=== PATIENT | female | born 1945 | race Caucasian/White ===

== ENCOUNTER 2016-09-13 06:26 | Outpatient (CLI) ==
[2013-09-03 10:40] VITALS: BMI 38.4
--- NOTE | 2016-09-13 09:25 | STRESSMOD ---
Ordering Physician: ELOISE LUTZ Date of Test: 09/13/16 Medical History: CHEST PAIN Current Medications: HYZAAR, OMEPRAZOL, FLONASE Physical Findings: S1, S2, NO S3 Resting EKG: SINUS RHYTHM/NO ACUTE CHANGES Target Heart Rate: 126/149 STAGE MPH/GRADE HEART RATE BPM BLOOD PRESSURE mmhg RHYTHM S-T SEGMENT UP DOWN SYMPTOMS,COMMENTS At Rest 70 160/90 SR X NONE 1 1.7/0% 100 178/90 SR X NONE 2 1.7/5% 184/92 3 1.7/10% 4 2.5/12% 5 3.4/14% 6 4.2/16% 7 5.18% Immediately after 129 SR X FATIGUE Total Time: 7:01 Maximum Heart Rate Reached: 129 Reason for Termination : FATIGUE 4 MIN POST EXERCISE: HR 81 BPM, BP 180/88 MMHG ____ INTERPRETATION: 95%OXYGEN SATURATION WITH EXERCISE METS 4.6 1. NO EVIDENCE OF ISCHEMIC BY ST-T WAVE 2. NO CHEST PAIN OR CHEST DISCOMFORT 3. FEW ISOLATED PVC'S 4. BLOOD PRESSURE RESPONSE: HYPERTENSION AT REST AND WITH EXERCISE NORMAL LEFT VENTRICULAR CONTRACTILITY--RESTING AND POST EXERCISE MTDD
--- NOTE | 2016-09-13 09:28 | ECHOSTRESS ---
Date of Exam: 09/13/16 [facility] Reason for Echo: CHEST PAIN, STRESS TEST--NO ISCHEMIA M-Mode Normal Adult Results LV Dimensions Normal Adult Results AoV Opening excursions >1.6 LVEDD-base- 3.5-5.8 Ao root dimensions 2.0-3.7 LVESD-base- 3.1-4.6 L. Atrium dimensions 1.9-3.8 Post. Wall thickness 0.8-1.1 IV septum (thickness) 0.7-1.2 Post. Wall excursion 0.72-1.3 Septal motion Systolic motion R. Ventricular cavity 1.5-2.0 LVEF 60% Paradoxical septal wall motion 2-D: NORMAL LEFT VENTRICULAR CONTRACTILITY--RESTING AND POST EXERCISE M-MODE: MV: AV: TV: PV: CHAMBER SIZE: WALL MOTION: NORMAL LEFT VENTRICULAR CONTRACTILITY--RESTING AND POST EXERCISE PERICARDIUM: INTERPRETATION: 1. NORMAL LEFT VENTRICULAR CONTRACTILITY--RESTING AND POST EXERCISE MTDD
== END 2016-09-13 06:27 | disposition home or self-care (01) ==
LOC: CAR 06:26
PROVIDERS: ATTEND General Practice
DX: M79.603 Pain in arm, unspecified (principal); I10 Essential (primary) hypertension; R07.89 Other chest pain; Z68.36 Body mass index [BMI] 36.0-36.9, adult

== ENCOUNTER 2016-10-18 16:33 | Outpatient (CLI) ==
[2013-09-03 10:40] VITALS: BMI 38.4
--- NOTE | 2016-10-18 16:56 | DI ---
EXAM: Right humerus two-view HISTORY: Pain in right arm COMPARISON: Radiograph shoulder 08/20/2009 FINDINGS: No fracture dislocation. Mild osteoarthritis acromioclavicular glenohumeral joints, poor ly evaluated. Alignment is normal. No focal soft tissue abnormality. IMPERSSION: No fracture or dislocation.
== END 2016-10-18 16:34 | disposition home or self-care (01) ==
LOC: RAD 16:33
PROVIDERS: ATTEND General Practice
DX: M79.601 Pain in right arm (principal)

== ENCOUNTER 2016-10-19 13:11 | Outpatient (CLI) ==
[2013-09-03 10:40] VITALS: BMI 38.4
--- NOTE | 2016-10-19 17:42 | MRI ---
EXAM: MRI of the right upper extremity without contrast COMPARISON: Right humerus radiographs 10/18/2016. HISTORY: Pain in the mid to upper humerus. Previous fracture 4 years ago without a recent injury. No provided history of surgery involving the right humerus. TECHNIQUE: Multiplanar noncontrast MR images of the right humerus were acquired using a 1.5 Alycia m agnet with field of view extending from the mid to distal shaft through the humeral neck with incomp lete assessment of the humeral head. The distal humerus and elbow were incompletely assessed. Sever al sequences are significantly limited by patient motion artifact and multiple sequences were repeat ed. There is chronic-appearing deformity of the proximal shaft/neck of the humerus consistent with an ol d healed fracture with mild displacement with most pronounced cortical step off anteromedially at th e neck. No evidence of an acute fracture or osteomyelitis. Confluent regions of inversion recovery hyperintense/T1 hypointense signal throughout the humeral shaft suggesting red marrow reconversion/ hyperplasia. No cortical destruction. No evidence of an acute muscle injury. No drainable intramuscular or deep fascial fluid collection. No soft tissue mass identified. Mild muscle atrophy with most pronounced fatty infiltration of th e deltoid muscle. Partially imaged degenerative changes of the glenohumeral joint. Sub centimeter axillary lymph nodes which are not pathologic by size criteria. The rotator cuff and acromioclavicu lar joint are excluded from the field of view. The visualized portions of the long head biceps withi n the bicipital groove are unremarkable. The proximal bicipital groove segment and intra-articular segment of the tendon are incompletely assessed. The distal biceps is also incompletely assessed. IMPRESSION: 1. Chronic-appearing deformity of the proximal right humerus related to an old healed fracture as d escribed. No acute osseous abnormality. Partially imaged degenerative changes of the glenohumeral j oint. 2. Nonspecific red marrow reconversion/hyperplasia. No focal marrow lesion. 3. Sub centimeter right axillary lymph nodes which are not nonspecific. 4. Mild muscle atrophy.
== END 2016-10-19 13:12 | disposition home or self-care (01) ==
LOC: RAD 13:11
PROVIDERS: ATTEND General Practice
DX: M79.601 Pain in right arm (principal)

== ENCOUNTER 2016-12-05 12:40 | Outpatient (CLI) ==
[2013-09-03 10:40] VITALS: BMI 38.4
[2016-12-05 13:10] LABS: BASOPHILS % (AUTO) 0.2 % (0.0-3.0); EOSINOPHILS # (AUTO) 0.2 K/ul (0.0-0.7); EOSINOPHILS % (AUTO) 1.8 % (0.0-7.0); HEMATOCRIT 34.2 % (37.0-47.0); HEMOGLOBIN 10.8 g/dl (12.0-16.0); IMMATURE GRANULOCYTE % (AUTO) 0.4 % (0.0-5.0); LYMPHOCYTES # (AUTO) 1.9 K/uL (0.60-3.4); LYMPHOCYTES % (AUTO) 22.1 (10.0-50.0); MEAN CORPUSCULAR HEMOGLOBIN 28.4 pg (27.0-31.0); MEAN CORPUSCULAR HGB CONC 31.6 (31.8-35.4); MONOCYTES # (AUTO) 0.6 K/uL (0.4-2.0); MONOCYTES % (AUTO) 7.5 (0-10); NEUTROPHILS # (AUTO) 5.7 K/ul (2.0-6.9); PLATELET COUNT 377 10^3/uL (140-440); WHITE BLOOD COUNT 8.36 K/ul (4.6-10.2)
[2016-12-05 13:12] LABS: BILIRUBIN,URINE Negative (NEGATIVE); KETONES,URINE Negative (NEGATIVE); LEUKOCYTE ESTERASE ,URINE Negative (NEGATIVE); NITRITE,URINE Negative (NEGATIVE); PROTEIN,URINE Negative (NEGATIVE); URINE, BLOOD Negative (NEGATIVE)
[2016-12-05 13:13] LABS: ADD URINE MICROSCOPIC NO
[2016-12-05 13:53] LABS: ALBUMIN 3.6 g/dL (3.4-5.0); ALBUMIN/GLOBULIN RATIO 1.06; ANION GAP 12.9; BILIRUBIN,TOTAL 0.57 mg/dL (0.00-1.20); BUN/CREATININE RATIO 17.39; CALCIUM 9.4 mg/dL (8.2-10.2); CHOL/HDL RATIO 5.1 (4.5-5.5); CREATININE 0.69 mg/dL (0.60-1.30); POTASSIUM 3.9 mmol/L (3.5-5.10)
== END 2016-12-05 12:41 | disposition home or self-care (01) ==
LOC: LAB 12:40
PROVIDERS: ATTEND General Practice
DX: I10 Essential (primary) hypertension (principal); K21.9 Gastro-esophageal reflux disease without esophagitis; G44.209 Tension-type headache, unspecified, not intractable; K76.0 Fatty (change of) liver, not elsewhere classified; K76.9 Liver disease, unspecified; R63.5 Abnormal weight gain; R30.0 Dysuria; Z68.36 Body mass index [BMI] 36.0-36.9, adult
CPT/HCPCS: 36415; 80053; 80061; 81001; 84443; 85025

== ENCOUNTER 2017-02-07 14:17 | Outpatient (CLI) ==
[2013-09-03 10:40] VITALS: BMI 38.4
== END 2017-02-07 14:18 | disposition home or self-care (01) ==
LOC: LAB 14:17
PROVIDERS: ATTEND General Practice
DX: J02.9 Acute pharyngitis, unspecified (principal)
CPT/HCPCS: 87070

== ENCOUNTER 2017-04-12 09:15 | Outpatient (CLI) ==
[2013-09-03 10:40] VITALS: BMI 38.4
--- NOTE | 2017-04-12 09:37 | DI ---
Exam: Two x-rays of the chest. Comparison: 07/13/2016. Reason for exam: Wheezing. FINDINGS: No pneumothorax, pleural effusion, or focal consolidation. The cardiac silhouette is not enlarged. Old granulomatous disease is seen in the lung parenchyma. The imaged osseous structures appear gross ly unremarkable without acute fracture. Impression: No acute cardiopulmonary process.
[2017-04-12 09:49] LABS: BASOPHILS % (AUTO) 0.3 % (0.0-3.0); EOSINOPHILS # (AUTO) 0.2 K/ul (0.0-0.7); EOSINOPHILS % (AUTO) 2.6 % (0.0-7.0); HEMATOCRIT 34.6 % (37.0-47.0); HEMOGLOBIN 11.5 g/dl (12.0-16.0); IMMATURE GRANULOCYTE % (AUTO) 0.3 % (0.0-5.0); LYMPHOCYTES # (AUTO) 1.7 K/uL (0.60-3.4); LYMPHOCYTES % (AUTO) 18.6 (10.0-50.0); MEAN CORPUSCULAR HEMOGLOBIN 29.6 pg (27.0-31.0); MEAN CORPUSCULAR HGB CONC 33.2 (31.8-35.4); MEAN CORPUSCULAR VOLUME 88.9 fl (81.0-99.0); MONOCYTES # (AUTO) 0.7 K/uL (0.4-2.0); MONOCYTES % (AUTO) 8.4 (0-10); NEUTROPHILS # (AUTO) 6.2 K/ul (2.0-6.9); NEUTROPHILS % (AUTO) 69.8; PLATELET COUNT 378 10^3/uL (140-440); RED BLOOD COUNT 3.89 10^6/ul (4.20-5.40); WHITE BLOOD COUNT 8.85 K/ul (4.6-10.2)
== END 2017-04-12 09:16 | disposition home or self-care (01) ==
LOC: RAD 09:15
PROVIDERS: ATTEND General Practice
DX: R06.2 Wheezing (principal); R05 Cough
CPT/HCPCS: 36415; 85025; 87651; 87880

== ENCOUNTER 2017-06-16 08:27 | Outpatient (CLI) ==
[2013-09-03 10:40] VITALS: BMI 38.4
--- NOTE | 2017-06-16 09:58 | MAMMO ---
EXAM: Bilateral digital screening mammogram (2-D and 3-D) History: Screening Comparison: Bilateral mammogram 07/05/2016 Findings: MLO and CC views of bilateral breasts demonstrate predominately fat replaced breast parenc hyma. CAD was reviewed by the radiologist. Tomosynthesis was performed. There are no dominant mass es, no suspicious microcalcifications and no architectural distortions Impression: Stable negative mammogram. Recommend followup routine screening mammography in 1 year. BIRADS 1
== END 2017-06-16 08:28 | disposition home or self-care (01) ==
LOC: RAD 08:27
PROVIDERS: ATTEND General Practice
DX: Z12.31 Encounter for screening mammogram for malignant neoplasm of breast (principal)
CPT/HCPCS: 77067

== ENCOUNTER 2017-09-20 07:23 | Outpatient (CLI) ==
[2013-09-03 10:40] VITALS: BMI 38.4
== END 2017-09-20 07:24 | disposition home or self-care (01) ==
LOC: LAB 07:23
PROVIDERS: ATTEND General Practice
DX: I10 Essential (primary) hypertension (principal); K21.9 Gastro-esophageal reflux disease without esophagitis; K76.0 Fatty (change of) liver, not elsewhere classified; Z79.899 Other long term (current) drug therapy
CPT/HCPCS: 36415; 80053; 80061; 81001; 85025

== ENCOUNTER 2017-11-30 15:12 | Outpatient (CLI) ==
[2013-09-03 10:40] VITALS: BMI 38.4
--- NOTE | 2017-11-30 16:34 | DI ---
EXAM: Chest two view, frontal and lateral views. HISTORY: Respiratory symptoms. COMPARISON: 04/12/2017. FINDINGS: The heart size is normal. There is no pulmonary vascular congestion. The lungs are clear save for calcified granulomatous changes. No pleural effusion or pneumothorax is seen. No acute os seous abnormality identified. Postsurgical change of the lumbar spine are partially imaged. Clips n oted in the right upper abdomen. Since the prior study, there has been no significant interval change . IMPRESSION: No acute cardiopulmonary process.
== END 2017-11-30 15:13 | disposition home or self-care (01) ==
LOC: LAB 15:12
PROVIDERS: ATTEND General Practice
DX: M54.9 Dorsalgia, unspecified (principal); R06.02 Shortness of breath; R09.89 Other specified symptoms and signs involving the circulatory and respiratory systems
CPT/HCPCS: 36415; 81001; 85379

== ENCOUNTER 2017-12-12 07:24 | Outpatient (CLI) ==
[2013-09-03 10:40] VITALS: BMI 38.4
--- NOTE | 2017-12-12 08:07 | US ---
Exam: Dimas-scale and color ultrasonographic evaluation of the kidneys and urinary bladder. Reason for exam: Hematuria with back pain. Comparison: CT abdomen pelvis performed 12/23/2011. FINDINGS: The right kidney measures approximately 10.8 x 4.5 x 5.5 cm with a normal appearing echotexture, no h ydronephrosis, and no nephrolithiasis. The left kidney measures approximately 12.6 x 5.6 x 4.5 cm with a normal appearing echotexture, no hy dronephrosis, and no nephrolithiasis. There is mild prominence of the renal pyramids seen in the lef t kidney. Postvoid bladder volume was unable to be determined secondary to complete emptying. Impression: 1. No acute ultrasonographic findings are seen within the kidneys or urinary bladder. 2. Mild prominence of the renal pyramids in the left kidney. If clinical concern exists, further ev aluation may be performed. 3. Complete emptying of the urinary bladder.
== END 2017-12-12 07:25 | disposition home or self-care (01) ==
LOC: RAD 07:24
PROVIDERS: ATTEND General Practice
DX: M54.5 Low back pain (principal); R31.9 Hematuria, unspecified
CPT/HCPCS: 76770

== ENCOUNTER 2018-01-23 09:21 | Outpatient (CLI) ==
[2013-09-03 10:40] VITALS: BMI 38.4
== END 2018-01-23 09:22 | disposition home or self-care (01) ==
LOC: FCC-LAB 09:21
PROVIDERS: ATTEND General Practice
DX: I10 Essential (primary) hypertension (principal); K21.9 Gastro-esophageal reflux disease without esophagitis; F43.9 Reaction to severe stress, unspecified; M54.5 Low back pain; K76.0 Fatty (change of) liver, not elsewhere classified; Z79.899 Other long term (current) drug therapy
CPT/HCPCS: 36415; 80053; 80061; 81001; 85025

== ENCOUNTER 2018-03-14 16:24 | Outpatient (CLI) ==
[2013-09-03 10:40] VITALS: BMI 38.4
== END 2018-03-14 16:25 | disposition home or self-care (01) ==
LOC: FCC-LAB 16:24
PROVIDERS: ATTEND General Practice
DX: M25.50 Pain in unspecified joint (principal); M54.9 Dorsalgia, unspecified; K92.1 Melena; W57.XXXA Bitten or stung by nonvenomous insect and other nonvenomous arthropods, initial encounter
CPT/HCPCS: 36415; 81001; 82272; 85651; 86038; 86617

== ENCOUNTER 2018-03-27 10:30 | Outpatient (CLI) ==
[2013-09-03 10:40] VITALS: BMI 38.4
--- NOTE | 2018-03-27 13:06 | DI ---
EXAM: Left hand three-view HISTORY: Arthralgia of both hands COMPARISON: 09/03/2013 FINDINGS: Bones appear demineralized. No fracture or dislocation. Mild scattered osteoarthritic ch ana maria throughout the hand and wrist with severe osteoarthritis first CMC joint. No focal soft tissue abnormality. 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
--- NOTE | 2018-03-27 13:09 | DI ---
EXAM: Right ankle. Three-view HISTORY: Arthralgia right ankle COMPARISON: None FINDINGS: No fracture or dislocation. Mild to moderate osteoarthritis involving the ankle and mid foot. Ankle mortise symmetric. Small plantar and posterior calcaneal spurs. No focal soft tissue abn ormality. IMPERSSION: 1. Mild to moderate osteoarthritis. 2. Calcaneal spurs.
--- NOTE | 2018-03-27 13:14 | DI ---
EXAM: Three views of the right hand HISTORY: Right hand pain. COMPARISON: Left hand x-ray same day FINDINGS: . There is no cortical irregularity or displaced fracture of the right hand. There is mil d scattered joint space narrowing. There is moderate degenerative change and osteophyte formation of the first CMC joint. The soft tissues are unremarkable. IMPRESSION: Mild scattered degenerative disease throughout the right hand with moderate degenerative change of th e first CMC joint.
--- NOTE | 2018-03-27 14:01 | DI ---
EXAM: Three views of the left ankle HISTORY: Pain COMPARISON: 08/12/2008 FINDINGS: No fracture or dislocation is identified. The ankle mortise is symmetric. The talar dome contour is normal. There is minimal spurring of the inferior margin of the medial malleolus. There is a large distal Achilles insertion and moderate plantar fascial insertion calcaneal degenerative enthesophyte . The distal Achilles insertion spur has increased in size. IMPRESSION: No acute osseous abnormality. Calcaneal spurs.
== END 2018-03-27 10:31 | disposition home or self-care (01) ==
LOC: RAD 10:30
PROVIDERS: ATTEND General Practice
DX: M25.572 Pain in left ankle and joints of left foot (principal); M25.571 Pain in right ankle and joints of right foot; M25.532 Pain in left wrist; M25.541 Pain in joints of right hand; M25.542 Pain in joints of left hand

== ENCOUNTER 2018-05-24 09:17 | Outpatient (CLI) ==
[2013-09-03 10:40] VITALS: BMI 38.4
== END 2018-05-24 09:18 | disposition home or self-care (01) ==
LOC: RHC-LAB 09:17
PROVIDERS: ATTEND General Practice
DX: E78.5 Hyperlipidemia, unspecified (principal); I10 Essential (primary) hypertension; K76.9 Liver disease, unspecified; Z79.899 Other long term (current) drug therapy
CPT/HCPCS: 36415; 80053; 80061; 81001; 85025; 87086

== ENCOUNTER 2018-08-10 12:53 | Outpatient (CLI) ==
[2013-09-03 10:40] VITALS: BMI 38.4
--- NOTE | 2018-08-10 16:17 | DI ---
EXAM: LEFT SHOULDER HISTORY: Shoulder pain FINDINGS: Left shoulder three-view. Mild to moderate osteoarthritis of the AC joint. There is at l east mild osteoarthritis of the glenohumeral joint. No fracture or subluxation. No dislocation or s eparation. General bone density appears decreased. Soft tissues within normal limits. Atherosclero tic disease incidentally noted IMPRESSION: 1. Osteoarthritis of the shoulder. No acute radiographic findings.
== END 2018-08-10 12:54 | disposition home or self-care (01) ==
LOC: RAD 12:53
PROVIDERS: ATTEND General Practice
DX: M25.512 Pain in left shoulder (principal)

== ENCOUNTER 2018-11-06 06:56 | Day surgery (SDC) ==
[2013-09-03 10:40] VITALS: BMI 38.4
[2018-11-06] MEDS ORDERED: LIDOCAINE 1% 20 ML MDV ID STA (07:28)
[2018-11-06] MEDS ORDERED: DIPRIVAN 20 ML VIAL IVP ONE (08:15)
[2018-11-06] MEDS ORDERED: VERSED ONE (08:15)
[2018-11-06 08:55] VITALS: BP 138/55
--- NOTE | 2018-11-07 08:23 | HP ---
INDICATIONS FOR PROCEDURE: 73-year-old female with past history of polyps, unknown histology presents for colonoscopy. Her last colonoscopy was five years ago. MEDICATIONS: SEE ANESTHESIA NOTES. PROCEDURE: COLONOSCOPY. REPORT: The risks, benefits, alternatives and limitations were discussed in detail with the patient. Informed consent was obtained. After adequate sedation was achieved, a digital rectal exam revealed good tone, no masses. The colonoscope was introduced into the rectum and advanced under direct visual guidance to the cecum. The cecum was identified by the appendiceal orifice and IC valve. I then slowly withdrew the scope in circumferential manner examining the mucosa quite carefully. I looked on the proximal and distal side of folds and flexures as best as possible. I was able to retroflex the scope in the right colon and left colon to increase visualization. In the distal ascending colon there was as small AVM noted. There were scattered small mouth diverticula throughout the left colon. On retroflex view of the anal canal there were non engorged hemorrhoidal veins. The prep was good. The withdrawal time was 7 minutes and 48 seconds. The patient tolerated the procedure well with stable vital signs and pulse oximetry throughout. IMPRESSION: 1. 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 LEFT SIDE DIVERTICULOSIS RECOMMENDATIONS: 1. High fiber diet. 2. Office visit as needed. 3. Colonoscopy examination again in 5 years if she is doing well, sooner if there are any signs or symptoms to indicate otherwise. cc: Dr. Lexus MANNING
== END 2018-11-06 09:40 | disposition home or self-care (01) ==
LOC: SURG 06:56
PROVIDERS: ATTEND Internal Medicine Gastroenterology
DX: Z86.010 Personal history of colon polyps (principal); K57.90 Diverticulosis of intestine, part unspecified, without perforation or abscess without bleeding; Q27.33 Arteriovenous malformation of digestive system vessel

== ENCOUNTER 2018-11-13 12:42 | Outpatient (CLI) ==
[2013-09-03 10:40] VITALS: BMI 38.4
== END 2018-11-13 12:43 | disposition home or self-care (01) ==
LOC: RHC-LAB 12:42
PROVIDERS: ATTEND General Practice
DX: I10 Essential (primary) hypertension (principal); K76.9 Liver disease, unspecified; K21.9 Gastro-esophageal reflux disease without esophagitis; Z79.899 Other long term (current) drug therapy
CPT/HCPCS: 36415; 80053; 80061; 81001; 84443; 85025; 87086; 87186

== ENCOUNTER 2019-03-11 08:29 | Outpatient (CLI) ==
[2013-09-03 10:40] VITALS: BMI 38.4
== END 2019-03-11 08:30 | disposition home or self-care (01) ==
LOC: RHC-LAB 08:29
PROVIDERS: ATTEND General Practice
DX: K76.9 Liver disease, unspecified (principal); K21.9 Gastro-esophageal reflux disease without esophagitis; I10 Essential (primary) hypertension; Z79.899 Other long term (current) drug therapy
CPT/HCPCS: 36415; 80053; 80061; 81001; 85025; 87086; 87186